=== PATIENT | male | born 1935 | race Caucasian/White ===

== ENCOUNTER 2016-06-19 22:00 | Emergency (ER) | payer MEDICARE, MEDICAID ==
--- NOTE | 2016-06-19 22:18 | Emergency Department Record ---
History of Present Illness - General Chief complaint: Lower Extremity Pain Stated complaint: LEG PAIN Time Seen by Provider: 06/19/16 22:12 Source: Family Mode of Arrival: AMBULATORY W WALKER Limitations: No limitations - History of Present Illness Initial comments: The patient is here due to R ankle and lower leg pain for about 2 months that seems to be worse for the last week. The patient denies any fall, trauma, or injury. According to the patient's son the issue has been very chronic in nature. The patient has a hx of chronic leg edema and will not wear his compression stockings. He also has chronic discoloration to the anterior lower leg but that is not new now. The son denies any fever, chills, or any recent illness. MD Complaint: Extremity pain Onset/Timin -: Month(s) Location: Right, Ankle Radiation: None Quality: Other Consistency: Getting worse Improves with: Nothing Worsens with: Nothing Associated Symptoms: Denies other symptoms - Related Data Home Medications Medication Instructions Recorded Confirmed Last Taken Allopurinol [Zyloprim] 300 mg PO DAILY 06/19/16 06/19/16 Unknown Amlodipine Besylate [Norvasc] 5 mg PO DAILY 06/19/16 06/19/16 Unknown Calcitriol 0.25 mcg PO WEEKLY 06/19/16 06/19/16 Unknown Clonidine HCl 0.3 mg PO DAILY 06/19/16 06/19/16 Unknown Furosemide [Lasix] 40 mg PO DAILY 06/19/16 06/19/16 Unknown Gabapentin [Neurontin] 100 mg PO BID 06/19/16 06/19/16 Unknown Glimepiride [Amaryl] 2 mg PO DAILY 06/19/16 06/19/16 Unknown Meclizine HCl [Antivert] 25 mg PO DAILY PRN 06/19/16 06/19/16 Unknown Metolazone [Zaroxolyn] 2.5 mg PO DAILY 06/19/16 06/19/16 Unknown Omeprazole [Prilosec] 20 mg PO DAILY 06/19/16 06/19/16 Unknown Ropinirole HCl [Ropinirole ER] 2 mg PO BID 06/19/16 06/19/16 Unknown Simvastatin [Zocor] 20 mg PO DAILY 06/19/16 06/19/16 Unknown Previous Rx's Medication Instructions Recorded Acetaminophen [Tylenol 325Mg] 650 mg PO Q6H #50 tablet 06/19/16 Triamcinolone Acetonide 1 apply TP BID #1 tube 06/19/16 Allergies Allergy/AdvReac Type Severity Reaction Status Date / Time NO KNOWN DRUG ALLERGY Allergy Uncoded 08/02/13 10:02 Travel Screening - Travel/Exposure Within Last 30 Days Have you traveled within the last 30 days?: No - Travel/Exposure Within Last Year Have you traveled outside the [place] in the last year?: No - Additonal Travel Details Have you been exposed to anyone with a communicable illness?: No - Travel Symptoms Symptom Screening: None Review of Systems Constitutional: Denies: Chills, Fever Eyes: Denies: Eye discharge ENT: Denies: Congestion Respiratory: Denies: Cough, Dyspnea Past Medical History - SOCIAL HISTORY Smoking Status: Never smoker Alcohol Use: Rare Drug Use: None - RESPIRATORY Hx Respiratory Disorders: No - CARDIOVASCULAR Hx Cardio Disorders: No - NEURO Hx Neuro Disorders: No - GI Hx GI Disorders: No - Hx Genitourinary Disorders: Yes Hx Dialysis: No Hx Renal Disease: Yes (CKD) - ENDOCRINE Hx Endocrine Disorders: Yes Hx Diabetes: Yes - MUSCULOSKELETAL Hx Musculoskeletal Disorders: No - PSYCH Hx Psych Problems: No - HEMATOLOGY/ONCOLOGY Hx Hematology/Oncology Disorders: No Family Medical History Any Significant Family History?: No Physical Exam - General General Appearance: Alert, Cooperative, No acute distress - Head Head exam: Atraumatic, Normocephalic, Normal inspection - Eye Eye exam: Normal appearance, PERRL - Neck Neck exam: Normal inspection, Full ROM. negative: Tenderness - Respiratory Respiratory exam: Normal lung sounds bilaterally. negative: Rales, Respiratory distress, Rhonchi - Cardiovascular Cardiovascular Exam: Regular rate, Normal rhythm, Systolic murmur - GI/Abdominal GI/Abdominal exam: Soft, Normal bowel sounds. negative: Tenderness - Extremities Extremities exam: Full ROM, Pedal edema (2+ bilaterally and chronic.), Tenderness (There is mild tenderness to the anterior lower leg distally near where the patient's chronic venous stasis discoloration is present.), Other ( The patient's son states the discolored area to the R lower leg anteriorly is stable. There are trace pulses to the R foot with no foot pain or numbness.). negative: Normal inspection, Calf tenderness, Normal capillary refill Course Vital Signs 06/19/16 06/19/16 22:04 22:11 Temperature 97.7 F 97.7 F Pulse Rate [ 100 H Pulse Ox Probe] Respiratory 20 Rate Blood Pressure 146/81 [Left Arm] Pulse Ox 98 - Reevaluation(s) Reevaluation #1: The patient is doing very well. He insists the pain is over the discolored skin area of the R anterior lower leg. I did discuss it with the son and he states the area is chronically discolored and it appears stable to him. I will place the patient on a steroid cream and tylenol and have him see his PCP next week. The patient is also to obtain mild compression stockings to decrease the edema to the lower leg. 06/19/16 23:29 Medical Decision Making - Data Complexity MDM Data: Labs Ordered and/or Reviewed, X-Ray Ordered and/or Reviewed - Lab Data Result diagrams: 06/19/16 22:35 06/19/16 22:35 - Radiology Data Radiology results: Report reviewed (R lower leg: No acute changes.) Disposition Disposition: Discharge Clinical Impression: Leg pain, anterior Qualifiers: Laterality: right Qualified Code(s): M79.604 - Pain in right leg Disposition: Home, Self-Care Condition: (1) Good Instructions: Arthralgia (ED) Additional Instructions: Please take the Tylenol and Triamcinalone as directed and please use mild compression stockings during the day. Please see your PCP next week for recheck. Return to the ER if worse. Prescriptions: Triamcinolone Acetonide 1 apply TP BID #1 tube Acetaminophen [Tylenol 325Mg] 650 mg PO Q6H #50 tablet Forms: Patient Portal Access Time of Disposition: 23:28
[2016-06-19 22:50] LABS: BASO % 0.5 % (0-6); EOS % 3.2 % (0-6); GRAN % 62.9 % (47-80); HEMATOCRIT 42.1 % (42.0-52.0); HEMOGLOBIN 13.2 gm/dl (14.0-18.0); LYMPH % 27.8 % (16-45); MEAN CELL VOLUME 105.8 fl (81-97); MEAN CORPUSCULAR HGB CONC 31.4 g/dl (32-36); MEAN PLATELET VOLUME 10.3 fl (7.4-10.4); MONO % 5.6 % (0-9); PLATELET COUNT 172 K/uL (130-400); RED BLOOD COUNT 3.98 M/uL (4.40-5.70); RED CELL DISTRIBUTION WIDTH 15.7 % (11.5-14.5); WHITE BLOOD COUNT W/O DIFF 4.4 K/uL (4.2-12.2)
[2016-06-19 22:51] LABS: MEAN CORPUSCULAR HEMOGLOBIN 33.1 pg (27-33)
[2016-06-19 23:03] LABS: ANION GAP 18.4 (7-16); CARBON DIOXIDE 27.6 mmol/L (22-30); CREATININE 3.5 mg/dL (0.66-1.25)
[2016-06-19] MEDS: ACETAMINOPHEN 325 MG TAB PO ONE (23:45)
--- NOTE | 2016-06-25 14:59 | RADIOLOGY REPORT ---
EXAM: RIGHT LOWER LEG HISTORY: LEG PAIN. TECHNIQUE: Two views of the right lower leg were obtained. Comparison: None. Encounter: Initial. FINDINGS: Negative for an acute fracture or dislocation. Vascular calcifications. Soft tissue swelling may reflect edema or cellulitis. There is no soft tissue gas. IMPRESSION: NO ACUTE OSSEOUS ABNORMALITY. DIFFUSE SOFT TISSUE SWELLING. JOB NUMBER: [id number] MTDD
== END 2016-06-19 23:58 | disposition home or self-care (01) ==
LOC: ER 22:00
DX: M79.604 Pain in right leg (principal); R60.0 Localized edema
CPT/HCPCS: 80048; 85025; 99283; 99284

== ENCOUNTER 2016-07-01 14:54 | Emergency (ER) | payer MEDICARE, MEDICAID ==
--- NOTE | 2016-07-01 15:28 | Emergency Department Record ---
History of Present Illness - General Chief Complaint: Altered Mental Status Stated Complaint: ALTERED LEVEL OF CONSCIOUSNESS Time Seen by Provider: 07/01/16 15:17 Source: Patient Mode of Arrival: Ambulatory Limitations: No limitations - History of Present Illness Initial Comments: 80 yo male presents by EMS from [facility]. Per EMS staff reported a concern about his breathing, possible alcohol use, and sadness over discussing the of his . The patient patient states he is sad. He states his of 25 years April 10. He was thinking about her today and became tearful. He is not in pain. He denies shortness of breath. He states he has been eating and drinking normally. Onset/Timin -: Hour(s) Severity: Mild Context: Unknown Associated Symptoms: Denies other symptoms - [place] Coma Scale Eye Response: (4) Open spontaneously Motor Response: (6) Obeys commands Verbal Response: (5) Oriented Brenda Total: 15 - Related Data Home Medications Medication Instructions Recorded Confirmed Last Taken Allopurinol [Zyloprim] 300 mg PO DAILY 06/19/16 07/01/16 07/01/16 Amlodipine Besylate [Norvasc] 5 mg PO DAILY 06/19/16 07/01/16 07/01/16 Calcitriol 0.25 mcg PO WEEKLY 06/19/16 07/01/16 07/01/16 Clonidine HCl 0.3 mg PO DAILY 06/19/16 07/01/16 07/01/16 Furosemide [Lasix] 40 mg PO DAILY 06/19/16 07/01/16 07/01/16 Gabapentin [Neurontin] 100 mg PO BID 06/19/16 07/01/16 07/01/16 Glimepiride [Amaryl] 2 mg PO DAILY 06/19/16 07/01/16 07/01/16 Meclizine HCl [Antivert] 25 mg PO DAILY PRN 06/19/16 07/01/16 07/01/16 Metolazone [Zaroxolyn] 2.5 mg PO DAILY 06/19/16 07/01/16 07/01/16 Omeprazole [Prilosec] 20 mg PO DAILY 06/19/16 07/01/16 07/01/16 Ropinirole HCl [Ropinirole ER] 2 mg PO BID 06/19/16 07/01/16 07/01/16 Simvastatin [Zocor] 20 mg PO DAILY 06/19/16 07/01/16 07/01/16 Previous Rx's Medication Instructions Recorded Acetaminophen [Tylenol 325Mg] 650 mg PO Q6H #50 tablet 06/19/16 Triamcinolone Acetonide 1 apply TP BID #1 tube 06/19/16 Allergies Allergy/AdvReac Type Severity Reaction Status Date / Time NO KNOWN DRUG ALLERGY Allergy Uncoded 08/02/13 10:02 Travel Screening - Travel/Exposure Within Last 30 Days Have you traveled within the last 30 days?: No - Travel/Exposure Within Last Year Have you traveled outside the [place] in the last year?: No - Additonal Travel Details Have you been exposed to anyone with a communicable illness?: No Review of Systems Constitutional: Denies: Chills, Fever, Malaise, Weakness Eyes: Denies: Eye discharge, Eye pain, Photophobia ENT: Denies: Congestion, Throat pain Respiratory: Denies: Cough, Dyspnea, Hemoptysis, Stridor, Wheezes Cardiovascular: Denies: Chest pain, Palpitations, Syncope Endocrine: Denies: Fatigue Gastrointestinal: Denies: Abdominal pain, Constipation, Diarrhea, Nausea, Vomiting Genitourinary: Denies: Hematuria, Urgency Musculoskeletal: Denies: Arthralgia, Back pain, Joint swelling, Myalgia Skin: Denies: Bruising, Change in color Psychiatric: Reports: Depression. Denies: Anxiety Hematological/Lymphatic: Denies: Blood Clots, Easy bleeding, Easy bruising, Swollen glands Past Medical History - SOCIAL HISTORY Smoking Status: Never smoker Alcohol Use: Rare Alcohol Use Comment: 2-3 shots whiskey daily. Drug Use: None - RESPIRATORY Hx Respiratory Disorders: No - CARDIOVASCULAR Hx Cardio Disorders: No - NEURO Hx Neuro Disorders: No - GI Hx GI Disorders: No - Hx Genitourinary Disorders: Yes Hx Dialysis: No Hx Renal Disease: Yes (CKD) - ENDOCRINE Hx Endocrine Disorders: Yes Hx Diabetes: Yes - MUSCULOSKELETAL Hx Musculoskeletal Disorders: No - PSYCH Hx Psych Problems: No - HEMATOLOGY/ONCOLOGY Hx Hematology/Oncology Disorders: No Family Medical History Any Significant Family History?: No Physical Exam - General General Appearance: Alert, Oriented x3, Cooperative, No acute distress Limitations: No limitations, Other (Hard of Hearing best in left ear, no confusion, aware of surroundings, PCP) - Head Head exam: Atraumatic, Normocephalic, Normal inspection - Eye Eye exam: Normal appearance, PERRL. negative: Conjunctival injection, Periorbital swelling - ENT ENT exam: Normal exam, Mucous membranes moist Ear exam: Normal external inspection Nasal Exam: Normal inspection Mouth exam: Normal external inspection Teeth exam: Normal inspection Throat exam: Normal inspection - Neck Neck exam: Normal inspection, Full ROM. negative: Tenderness - Respiratory Respiratory exam: Normal lung sounds bilaterally. negative: Accessory muscle use, Respiratory distress, Rhonchi, Stridor, Wheezes - Cardiovascular Cardiovascular Exam: Regular rate, Normal rhythm, Normal heart sounds Peripheral Pulses: 2+: Radial (R), Radial (L) - GI/Abdominal GI/Abdominal exam: Soft. negative: Distended, Tenderness - Rectal Rectal exam: Deferred - exam: Deferred - Extremities Extremities exam: Normal inspection, Full ROM, Normal capillary refill. negative: Pedal edema, Tenderness - Back Back exam: Reports: Normal inspection, Full ROM. Denies: Muscle spasm, Rash noted, Tenderness - Neurological Neurological exam: Alert, CN II-XII intact, Oriented X3. negative: Motor sensory deficit - Psychiatric Psychiatric exam: Normal affect, Normal mood. negative: Agitated, Anxious - Skin Skin exam: Dry, Intact, Normal color, Warm Course Vital Signs 07/01/16 14:58 Temperature 97.4 F L Pulse Rate 78 Respiratory 24 Rate Blood Pressure 127/71 Pulse Ox 97 - Reevaluation(s) Reevaluation #1: Vitals are in the normal range He denies pain or shortness of breath He states he is sad remembering his 's . 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 He will follow up with the continued grief over his . 07/01/16 16:19 Reevaluation #3: The patient's daughter in law in the ED to pick up attendant the patient I informed her of the labs, Dr Nye's plan to follow up the renal function and the depression/grieving 07/01/16 17:32 Medical Decision Making - Lab Data Result diagrams: 07/01/16 15:53 07/01/16 15:53 Disposition Disposition: Discharge Clinical Impression: Grief Chronic renal failure Qualifiers: Chronic kidney disease stage: unspecified stage Qualified Code(s): N18.9 - Chronic kidney disease, unspecified Disposition: Home, Self-Care Condition: (1) Good Instructions: Chronic Kidney Disease (ED), Grief and Loss (ED) Additional Instructions: Dr Nye will follow up with your this week regarding your kidney function He will also follow up with you dealing with the loss of your and your grief Return at any time if you have any concerns. Forms: Patient Portal Access Time of Disposition: 16:21
[2016-07-01 16:06] LABS: BASO % 0.4 % (0-6); EOS % 1.8 % (0-6); GRAN % 72.1 % (47-80); HEMATOCRIT 41.2 % (42.0-52.0); HEMOGLOBIN 13.4 gm/dl (14.0-18.0); MEAN CELL VOLUME 101.5 fl (81-97); MEAN CORPUSCULAR HGB CONC 32.5 g/dl (32-36); MEAN PLATELET VOLUME 10.2 fl (7.4-10.4); MONO % 5.7 % (0-9); PLATELET COUNT 145 K/uL (130-400); RED BLOOD COUNT 4.06 M/uL (4.40-5.70); RED CELL DISTRIBUTION WIDTH 15.7 % (11.5-14.5); WHITE BLOOD COUNT W/O DIFF 5.7 K/uL (4.2-12.2)
[2016-07-01 16:12] LABS: ANION GAP 14.6 (7-16); CARBON DIOXIDE 28.4 mmol/L (22-30); CREATININE 3.9 mg/dL (0.66-1.25)
== END 2016-07-01 17:31 | disposition home or self-care (01) ==
LOC: ER 14:54
DX: R41.82 Altered mental status, unspecified (principal); E11.22 Type 2 diabetes mellitus with diabetic chronic kidney disease; N18.9 Chronic kidney disease, unspecified; Z79.84 Long term (current) use of oral hypoglycemic drugs; F43.21 Adjustment disorder with depressed mood
CPT/HCPCS: 80048; 80320; 85025; 99283

== ENCOUNTER 2016-07-20 11:31 | Emergency (ER) | payer MEDICARE, MEDICAID ==
--- NOTE | 2016-07-20 11:46 | Emergency Department Record ---
History of Present Illness - General Chief Complaint: Difficulty Breathing Stated Complaint: SHORTNESS OF BREATH Time Seen by Provider: 07/20/16 11:40 Source: Patient Mode of Arrival: EMS Limitations: No limitations - History of Present Illness Initial Comments: 80 yo male presents to ED via EMS from [facility] for evaluation of "delayed responses and shortness of breath". Patient denies any difficulty in breathing , cough, fevers, chills, or recent illness. Patient reports that he feels fine , is aware of where he is, the year, and is reports that he's "angry that they brought me here". Complaint: Shortness of breath Onset/Timin -: Hour(s) Associated Symptoms: Denies other symptoms - Related Data Home Medications Medication Instructions Recorded Confirmed Last Taken Allopurinol [Zyloprim] 300 mg PO DAILY 06/19/16 07/20/16 07/20/16 Amlodipine Besylate [Norvasc] 5 mg PO DAILY 06/19/16 07/20/16 07/20/16 Calcitriol 0.25 mcg PO WEEKLY 06/19/16 07/20/16 07/20/16 Clonidine HCl 0.3 mg PO DAILY 06/19/16 07/20/16 07/20/16 Furosemide [Lasix] 40 mg PO DAILY 06/19/16 07/20/16 07/20/16 Gabapentin [Neurontin] 100 mg PO BID 06/19/16 07/20/16 07/20/16 Glimepiride [Amaryl] 2 mg PO DAILY 06/19/16 07/20/16 07/20/16 Meclizine HCl [Antivert] 25 mg PO DAILY PRN 06/19/16 07/20/16 07/20/16 Metolazone [Zaroxolyn] 2.5 mg PO DAILY 06/19/16 07/20/16 07/20/16 Omeprazole [Prilosec] 20 mg PO DAILY 06/19/16 07/20/16 07/20/16 Ropinirole HCl [Ropinirole ER] 2 mg PO BID 06/19/16 07/20/16 07/20/16 Simvastatin [Zocor] 20 mg PO DAILY 06/19/16 07/20/16 07/20/16 Previous Rx's Medication Instructions Recorded Acetaminophen [Tylenol 325Mg] 650 mg PO Q6H #50 tablet 06/19/16 Triamcinolone Acetonide 1 apply TP BID #1 tube 06/19/16 Allergies Allergy/AdvReac Type Severity Reaction Status Date / Time NO KNOWN DRUG ALLERGY Allergy PT UNSURE Uncoded 07/20/16 11:35 OF REACTION Review of Systems Constitutional: Denies: Chills, Fever, Malaise, Night sweats Eyes: Denies: Eye discharge, Eye pain ENT: Denies: Congestion, Ear pain, Epistaxis Respiratory: Denies: Cough, Dyspnea Cardiovascular: Denies: Chest pain, Dyspnea on exertion Endocrine: Denies: Fatigue, Heat or cold intolerance Gastrointestinal: Denies: Abdominal pain, Nausea, Vomiting Genitourinary: Denies: Incontinence, Retention Musculoskeletal: Denies: Arthralgia, Back pain, Gout, Joint swelling Skin: Denies: Bruising, Change in color Neurological: Denies: Abnormal gait, Confusion, Headache, Seizure Psychiatric: Denies: Anxiety Hematological/Lymphatic: Denies: Anemia, Blood Clots Past Medical History - SOCIAL HISTORY Smoking Status: Never smoker Alcohol Use Comment: 2-3 shots whiskey daily. Drug Use: None - RESPIRATORY Hx Respiratory Disorders: No - CARDIOVASCULAR Hx Cardio Disorders: No - NEURO Hx Neuro Disorders: No - GI Hx GI Disorders: No - Hx Genitourinary Disorders: Yes Hx Dialysis: No Hx Renal Disease: Yes (CKD) - ENDOCRINE Hx Endocrine Disorders: Yes Hx Diabetes: Yes - MUSCULOSKELETAL Hx Musculoskeletal Disorders: No - PSYCH Hx Psych Problems: No - HEMATOLOGY/ONCOLOGY Hx Hematology/Oncology Disorders: No Physical Exam - General General Appearance: Alert, Oriented x3, Cooperative, Other (joking with me on examination, well appearing, AO x 3) Limitations: No limitations - Head Head exam: Atraumatic, Normocephalic, Normal inspection Head exam detail: negative: Abrasion, Contusion, Coreas's sign, General tenderness, Hematoma, Laceration - Eye Eye exam: Normal appearance. negative: Conjunctival injection, Periorbital swelling, Periorbital tenderness, Scleral icterus - ENT Ear exam: negative: Auricular hematoma, Auricular trauma Nasal Exam: negative: Active bleeding, Discharge, Dried blood, Foreign body Mouth exam: negative: Drooling, Laceration, Muffled voice, Tongue elevation - Neck Neck exam: Normal inspection. negative: Meningismus, Tenderness - Respiratory Respiratory exam: Normal lung sounds bilaterally. negative: Rales, Respiratory distress, Rhonchi, Stridor - Cardiovascular Cardiovascular Exam: Regular rate, Normal rhythm, Normal heart sounds - GI/Abdominal GI/Abdominal exam: Soft. negative: Rebound, Rigid, Tenderness - exam: Deferred - Extremities Extremities exam: Pedal edema (chronic per patient (2+)). negative: Calf tenderness, Tenderness - Back Back exam: Denies: CVA tenderness (R), CVA tenderness (L) - Neurological Neurological exam: Alert, Oriented X3. negative: Motor sensory deficit - Psychiatric Psychiatric exam: Normal affect, Normal mood - Skin Skin exam: Normal color. negative: Abrasion Type of lesion: negative: abrasion Course - Reevaluation(s) Reevaluation #1: 07/20/16 12:38 Labs reviewed, BUN 56 (baseline 60), Creatinine 3.4 (baseline 3.7). Labs are otherwise grossly unremarkable for an acute process. Reevaluation #2: 07/20/16 12:52 CXR: No acute process. Patient was updated on all results, reports "I could of told you everything looked good". Patient appears stable for discharge at this time. Medical Decision Making - Lab Data Result diagrams: 07/20/16 12:05 07/20/16 12:05 Disposition Disposition: Discharge Clinical Impression: Dyspnea Qualifiers: Dyspnea type: unspecified Qualified Code(s): R06.00 - Dyspnea, unspecified Disposition: Home, Self-Care Condition: (2) Stable Additional Instructions: Return to ED if your symptoms worsen or if you have any concerns. Follow-up with your family doctor in 3-5 days as directed. Forms: Patient Portal Access Time of Disposition: 12:54
[2016-07-20 12:20] LABS: BASO % 0.6 % (0-6); EOS % 1.9 % (0-6); GRAN % 67.3 % (47-80); HEMATOCRIT 42.7 % (42.0-52.0); HEMOGLOBIN 13.4 gm/dl (14.0-18.0); LYMPH % 24.4 % (16-45); MEAN CELL VOLUME 102.2 fl (81-97); MEAN CORPUSCULAR HGB CONC 31.4 g/dl (32-36); MEAN PLATELET VOLUME 10.1 fl (7.4-10.4); MONO % 5.8 % (0-9); PLATELET COUNT 161 K/uL (130-400); RED BLOOD COUNT 4.18 M/uL (4.40-5.70); RED CELL DISTRIBUTION WIDTH 15.7 % (11.5-14.5); WHITE BLOOD COUNT W/O DIFF 4.6 K/uL (4.2-12.2)
[2016-07-20 12:31] LABS: ALB/GLOB RATIO 1.5 (1.1-1.8); ALBUMIN 4.8 gm/dL (3.5-5.0); BILIRUBIN,TOTAL 0.64 mg/dL (0.2-1.3); CREATININE 3.4 mg/dL (0.66-1.25); TOTAL PROTEIN 7.9 gm/dL (6.3-8.2)
== END 2016-07-20 13:32 | disposition home or self-care (01) ==
LOC: ER 11:31
DX: R06.00 Dyspnea, unspecified (principal); E11.22 Type 2 diabetes mellitus with diabetic chronic kidney disease; N18.9 Chronic kidney disease, unspecified
CPT/HCPCS: 71020; 80053; 85025; 99283

== ENCOUNTER 2016-07-22 23:18 | Emergency (ER) | payer MEDICARE, MEDICAID ==
[2016-07-23 01:42] LABS: BASO % 0.3 % (0-6); EOS % 1.8 % (0-6); HEMATOCRIT 44.9 % (42.0-52.0); HEMOGLOBIN 13.9 gm/dl (14.0-18.0); LYMPH % 23.4 % (16-45); MEAN CELL VOLUME 100.9 fl (81-97); MEAN CORPUSCULAR HEMOGLOBIN 31.2 pg (27-33); MEAN PLATELET VOLUME 10.1 fl (7.4-10.4); MONO % 8.5 % (0-9); PLATELET COUNT 169 K/uL (130-400); RED BLOOD COUNT 4.45 M/uL (4.40-5.70); RED CELL DISTRIBUTION WIDTH 15.7 % (11.5-14.5); WHITE BLOOD COUNT W/O DIFF 6.7 K/uL (4.2-12.2)
[2016-07-23 01:53] LABS: ANION GAP 18.4 (7-16); CARBON DIOXIDE 30.6 mmol/L (22-30); CREATININE 3.8 mg/dL (0.66-1.25)
--- NOTE | 2016-07-23 02:33 | Emergency Department Record ---
History of Present Illness - General Chief Complaint: Fall Injury Stated Complaint: FALL Time Seen by Provider: 07/22/16 23:54 Source: Patient, Family Mode of Arrival: EMS Limitations: No limitations - History of Present Illness Initial Comments: pt fell hitting his head and knee and was sent over from [facility]. no loc. MD Complaint: Fall Onset/Timin -: Minutes(s) Fall From: Standing When Fall Occurred: 1 hour [employer] RE[employer] Fall Witnessed: Yes, by living facility staff Place Fall Occurred: custodial/SNF Loss of Consciousness: None Prolonged Down Time?: No Symptoms Prior to Fall: None Location: Head, Other Location - Extremities: Right: Knee Severity: Mild Quality: Aching Context: Tripped/slipped Associated Symptoms: Denies - [place] Coma Scale Eye Response: (4) Open spontaneously Motor Response: (6) Obeys commands Verbal Response: (4) Confused conversation Brenda Total: 14 - Related Data Home Medications Medication Instructions Recorded Confirmed Last Taken Amlodipine Besylate [Norvasc] 5 mg PO DAILY 06/19/16 07/23/16 07/22/16 Calcitriol 0.25 mcg PO WEEKLY 06/19/16 07/23/16 07/22/16 Clonidine HCl 0.3 mg PO DAILY 06/19/16 07/23/16 07/22/16 Furosemide [Lasix] 40 mg PO DAILY 06/19/16 07/23/16 07/22/16 Glimepiride [Amaryl] 2 mg PO DAILY 06/19/16 07/23/16 07/22/16 Meclizine HCl [Antivert] 25 mg PO DAILY PRN 06/19/16 07/23/16 07/20/16 Metolazone [Zaroxolyn] 2.5 mg PO DAILY 06/19/16 07/23/16 07/22/16 Omeprazole [Prilosec] 20 mg PO DAILY 06/19/16 07/23/16 07/22/16 Ropinirole HCl [Ropinirole ER] 2 mg PO BID 06/19/16 07/23/16 07/22/16 Simvastatin [Zocor] 20 mg PO DAILY 06/19/16 07/23/16 07/22/16 Previous Rx's Medication Instructions Recorded Acetaminophen [Tylenol 325Mg] 650 mg PO Q6H #50 tablet 03/15/17 Allergies Allergy/AdvReac Type Severity Reaction Status Date / Time NO KNOWN DRUG ALLERGY Allergy PT UNSURE Uncoded 07/20/16 11:35 OF REACTION Travel Screening - Travel/Exposure Within Last 30 Days Have you traveled within the last 30 days?: No - Travel/Exposure Within Last Year Have you traveled outside the [place] in the last year?: No - Additonal Travel Details Have you been exposed to anyone with a communicable illness?: No - Travel Symptoms Symptom Screening: None Review of Systems Reviewed: No additional complaints except as noted below Constitutional: Reports: As per HPI. Denies: Chills, Fever, Malaise, Night sweats, Weakness, Weight change Eyes: Reports: As per HPI. Denies: Eye discharge, Eye pain, Photophobia, Vision change ENT: Reports: As per HPI. Denies: Congestion, Dental pain, Ear pain, Epistaxis , Hearing loss, Throat pain Respiratory: Reports: As per HPI. Denies: Cough, Dyspnea, Hemoptysis, Stridor, Wheezes Cardiovascular: Reports: As per HPI. Denies: Arrhythmia, Chest pain, Dyspnea on exertion, Edema, Murmurs, Orthopnea, Palpitations, Paroxysmal nocturnal dyspnea, Rheumatic Fever, Syncope Endocrine: Reports: As per HPI. Denies: Fatigue, Heat or cold intolerance, Polydipsia, Polyuria Gastrointestinal: Reports: As per HPI. Denies: Abdominal pain, Constipation, Diarrhea, Hematemesis, Hematochezia, Melena, Nausea, Vomiting Genitourinary: Reports: As per HPI. Denies: Dysuria, Frequency, Hematuria, Incontinence, Retention, Testicular pain, Testicular mass, Urgency Musculoskeletal: Reports: As per HPI. Denies: Arthralgia, Back pain, Gout, Joint swelling, Myalgia, Neck pain Skin: Reports: As per HPI. Denies: Bruising, Change in color, Change in hair/ nails, Lesions, Pruritus, Rash Neurological: Reports: As per HPI. Denies: Abnormal gait, Confusion, Headache, Numbness, Paresthesias, Seizure, Tingling, Tremors, Vertigo, Weakness Psychiatric: Reports: As per HPI. Denies: Anxiety, Auditory hallucinations, Depression, Homicidal thoughts, Suicidal thoughts, Visual hallucinations Hematological/Lymphatic: Reports: As per HPI. Denies: Anemia, Blood Clots, Easy bleeding, Easy bruising, Swollen glands Past Medical History - SOCIAL HISTORY Smoking Status: Never smoker Alcohol Use: None Drug Use: None - RESPIRATORY Hx Respiratory Disorders: No - CARDIOVASCULAR Hx Cardio Disorders: No - NEURO Hx Neuro Disorders: No - GI Hx GI Disorders: No - Hx Genitourinary Disorders: Yes Hx Dialysis: No Hx Renal Disease: Yes (CKD) - ENDOCRINE Hx Endocrine Disorders: Yes Hx Diabetes: Yes (NIDDM) - MUSCULOSKELETAL Hx Musculoskeletal Disorders: No - PSYCH Hx Psych Problems: No - HEMATOLOGY/ONCOLOGY Hx Hematology/Oncology Disorders: No Family Medical History Any Significant Family History?: No Physical Exam - General General Appearance: Alert, Oriented x3, Cooperative, Mild distress - Head Head exam: Normal inspection - Eye Eye exam: Normal appearance, PERRL, EOMI Pupils: Normal accommodation - ENT ENT exam: Normal exam, Mucous membranes moist, Normal external ear exam, Normal orophraynx Ear exam: Normal external inspection. negative: External canal tenderness Nasal Exam: Normal inspection. negative: Discharge, Sinus tenderness Mouth exam: Normal external inspection, Tongue normal Teeth exam: Normal inspection. negative: Dental caries Throat exam: Normal inspection. negative: Tonsillar erythema, Tonsillar exudate - Neck Neck exam: Normal inspection, Full ROM. negative: Tenderness - Respiratory Respiratory exam: Normal lung sounds bilaterally. negative: Respiratory distress - Cardiovascular Cardiovascular Exam: Regular rate, Normal rhythm, Normal heart sounds - GI/Abdominal GI/Abdominal exam: Soft, Normal bowel sounds. negative: Tenderness - Rectal Rectal exam: Deferred - exam: Deferred - Extremities Extremities exam: Normal inspection, Full ROM, Normal capillary refill, Other ( abrasion r knee). negative: Tenderness - Back Back exam: Reports: Normal inspection, Full ROM. Denies: Muscle spasm, Rash noted, Tenderness - Neurological Neurological exam: Alert, CN II-XII intact, Normal gait, Oriented X3 - Psychiatric Psychiatric exam: Normal affect, Normal mood - Skin Skin exam: Dry, Intact, Normal color, Warm Course Vital Signs 07/22/16 07/23/16 23:22 01:18 Temperature 98.4 F Pulse Rate 90 Pulse Rate [ 88 Pulse Ox Probe] Respiratory 24 16 Rate Blood Pressure 108/79 Blood Pressure 105/72 [Left Arm] Pulse Ox 96 95 - Reevaluation(s) Reevaluation #1: 07/23/16 02:[address] shows old subdural, shunt and possible epidural. pts renal failure has worsened. being transferred. Reevaluation #2: 07/23/16 02:53 d/w dr mar Medical Decision Making - Lab Data Result diagrams: 07/23/16 01:37 07/23/16 01:37 Lab Results 07/23/16 07/23/16 Range/Units 01:37 01:37 WBC 6.7 (4.2-12.2) K/uL RBC 4.45 (4.40-5.70) M/uL Hgb 13.9 L (14.0-18.0) gm/dl Hct 44.9 (42.0-52.0) % MCV 100.9 H (81-97) fl MCH 31.2 (27-33) pg MCHC 31.0 L (32-36) g/dl RDW 15.7 H (11.5-14.5) % Plt Count 169 (130-400) K/uL MPV 10.1 (7.4-10.4) fl Gran % 66.0 (47-80) % Lymphocytes % 23.4 (16-45) % Monocytes % 8.5 (0-9) % Eosinophils % 1.8 (0-6) % Basophils % 0.3 (0-6) % Sodium 140 (136-145) mmol/L Potassium 3.3 L (3.5-5.1) mmol/L Chloride 91 L (98-107) mmol/L Carbon Dioxide 30.6 H (22-30) mmol/L Anion Gap 18.4 H (7-16) BUN 64 H (9-20) mg/dL Creatinine 3.8 H (0.66-1.25) mg/dL Estimated GFR 16 ml/min Random Glucose 67 L (70-110) mg/dL Calcium 9.9 (8.5-10.1) mg/dL Disposition Disposition: Transfer Clinical Impression: Renal failure Head injury due to trauma Qualifiers: Encounter type: initial encounter Qualified Code(s): S09.90XA - Unspecified injury of head, initial encounter Disposition: Acute Care Hospital Transfer Transfer To: [facility] Reason For Transfer: 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
[2016-07-23 02:50] LABS: URINE APPEARANCE CLEAR; URINE BILIRUBIN NEGATIVE (NEGATIVE); URINE BLOOD SMALL (NEGATIVE); URINE COLOR YELLOW; URINE EPITHELIAL CELLS 0 - 2 (FEW); URINE GLUCOSE (UA) NEGATIVE (NEGATIVE); URINE KETONE NEGATIVE (NEGATIVE); URINE LEUKOCYTE ESTERASE NEGATIVE (NEGATIVE); URINE NITRITE NEGATIVE (NEGATIVE); URINE UROBILINOGEN 0.2 E.U./dL (0.20 - 1.00); URINE WBC 0 - 2 (0-2/hpf)
[2016-07-23 02:51] LABS: URINE BACTERIA NONE SEEN
== END 2016-07-23 03:16 | disposition short-term general hospital (02) ==
LOC: ER 23:18
DX: S09.90XA Unspecified injury of head, initial encounter (principal); E11.22 Type 2 diabetes mellitus with diabetic chronic kidney disease; N18.9 Chronic kidney disease, unspecified; R41.0 Disorientation, unspecified; M25.561 Pain in right knee; W01.0XXA Fall on same level from slipping, tripping and stumbling without subsequent striking against object, initial encounter; Y92.121 Bathroom in nursing home as the place of occurrence of the external cause; Z86.73 Personal history of transient ischemic attack (TIA), and cerebral infarction without residual deficits
CPT/HCPCS: 70450; 72125; 80048; 81001; 85025; 99285

== ENCOUNTER 2017-04-11 09:08 | Emergency (ER) | payer MEDICARE, MEDICAID ==
[2017-04-11] MEDS ORDERED: ONDANSETRON HCL IV 4 MG/2 ML VIAL IV ONE (09:31)
--- NOTE | 2017-04-11 09:36 | Emergency Department Record ---
History of Present Illness - General Chief complaint: Nausea, Vomiting, Diarrhea Stated complaint: N/V/D Time Seen by Provider: 04/11/17 09:23 Source: Patient, EMS Mode of Arrival: EMS Limitations: No limitations - History of Present Illness Initial comments: The patient is here from [facility] due to a 2 hour hx of nausea, vomiting, and diarrhea. He denies any AP, back pain, or blood in the stool or vomit. The patient also denies any other medical issues presently. MD complaint: Diarrhea, Nausea, Vomiting Onset/Timin -: Hour(s) Description of Vomiting: Bilious Description of Diarrhea: Water Associated Abdominal Pain: No Improves with: None Worsens with: None Associated Symptoms: Nausea/vomiting - Related Data Previous Rx's Medication Instructions Recorded Acetaminophen [Tylenol 325Mg] 650 mg PO Q6H #50 tablet 06/19/16 Ondansetron [Zofran Odt] 4 mg SL .Q4-6H PRN #12 tab.rapdis 04/11/17 Allergies Allergy/AdvReac Type Severity Reaction Status Date / Time NO KNOWN DRUG ALLERGY Allergy PT UNSURE Uncoded 07/20/16 11:35 OF REACTION Travel Screening - Travel/Exposure Within Last 30 Days Have you traveled within the last 30 days?: No Review of Systems Constitutional: Denies: Chills, Fever Eyes: Denies: Eye discharge ENT: Denies: Congestion Respiratory: Denies: Cough, Dyspnea Past Medical History - SOCIAL HISTORY Smoking Status: Never smoker Alcohol Use: None Drug Use: None - RESPIRATORY Hx Respiratory Disorders: No - CARDIOVASCULAR Hx Cardio Disorders: No - NEURO Hx Neuro Disorders: Yes Hx CVA: Yes (X2) Comment:: Shunt place - GI Hx GI Disorders: No - Hx Genitourinary Disorders: Yes Hx Dialysis: No Hx Renal Disease: Yes (CKD) - ENDOCRINE Hx Endocrine Disorders: Yes Hx Diabetes: Yes (NIDDM) - MUSCULOSKELETAL Hx Musculoskeletal Disorders: No - PSYCH Hx Psych Problems: No - HEMATOLOGY/ONCOLOGY Hx Hematology/Oncology Disorders: No Family Medical History Any Significant Family History?: No Physical Exam - General General Appearance: Alert, No acute distress - Head Head exam: Atraumatic, Normocephalic, Normal inspection - Eye Eye exam: Normal appearance, PERRL - ENT Throat exam: Normal inspection. negative: Tonsillar erythema, Tonsillar exudate - Neck Neck exam: Normal inspection, Full ROM. negative: Tenderness - Respiratory Respiratory exam: Normal lung sounds bilaterally. negative: Respiratory distress - Cardiovascular Cardiovascular Exam: Regular rate, Normal rhythm, Normal heart sounds - GI/Abdominal GI/Abdominal exam: Soft, Normal bowel sounds. negative: Rebound, Rigid, Tenderness - Extremities Extremities exam: Normal inspection, Full ROM, Normal capillary refill. negative: Tenderness Course Vital Signs 04/11/17 09:15 Pulse Rate 73 Respiratory 22 Rate Blood Pressure 136/99 Pulse Ox 96 - Reevaluation(s) Reevaluation #1: The patient is doing much better at this time. He feels "much better" and denies any pain, nausea, vomiting, or any further diarrhea. 04/11/17 10:46 Reevaluation #2: The patient is resting comfortably and feels much better. He denies any pain or discomfort. 04/11/17 12:50 Medical Decision Making - Lab Data Result diagrams: 04/11/17 09:22 04/11/17 09:22 Disposition Disposition: Discharge Clinical Impression: Vomiting and diarrhea Disposition: Home, Self-Care Condition: (2) Stable Instructions: Acute Nausea and Vomiting (ED) Additional Instructions: Continue your regular medicines and use Zofran if needed. Please see your doctor next week for recheck. Return to the ER for any worsening symptoms. Prescriptions: Ondansetron [Zofran Odt] 4 mg SL .Q4-6H PRN #12 tab.rapdis PRN Reason: Nausea Forms: Patient Portal Access Time of Disposition: 14:12 Quality - Quality Measures Quality Measures: N/A - Blood Pressure Screening View Details: Yes Does Patient Have Any of the Following: No Blood Pressure Classification: Hypertensive Reading Systolic Measurement: 136 Diastolic Measurement: 97 Screening for High Blood Pressure: < Pre-Hypertensive BP, F/U Documented > [ [id number]] Pre-Hypertensive Follow-up Interventions: Referral to alternative/primary care provider.
[2017-04-11] MEDS ORDERED: 0.9 % SODIUM CHLORIDE 1,000 ML BAG IV ONE (09:49)
[2017-04-11 09:54] LABS: BASO % 0.2 % (0-6); EOS % 3.2 % (0-6); GRAN % 70.4 % (47-80); HEMATOCRIT 41.2 % (42.0-52.0); HEMOGLOBIN 13.5 gm/dl (14.0-18.0); LYMPH % 19.5 % (16-45); MEAN CELL VOLUME 93.2 fl (81-97); MEAN CORPUSCULAR HEMOGLOBIN 30.5 pg (27-33); MEAN CORPUSCULAR HGB CONC 32.8 g/dl (32-36); MEAN PLATELET VOLUME 10.8 fl (7.4-10.4); MONO % 6.7 % (0-9); PLATELET COUNT 106 K/uL (130-400); RED BLOOD COUNT 4.42 M/uL (4.40-5.70); RED CELL DISTRIBUTION WIDTH 14.9 % (11.5-14.5); WHITE BLOOD COUNT W/O DIFF 4.1 K/uL (4.2-12.2)
[2017-04-11 10:58] LABS: URINE APPEARANCE CLEAR; URINE BILIRUBIN NEGATIVE (NEGATIVE); URINE BLOOD NEGATIVE (NEGATIVE); URINE COLOR YELLOW; URINE GLUCOSE (UA) NEGATIVE (NEGATIVE); URINE KETONE NEGATIVE (NEGATIVE); URINE LEUKOCYTE ESTERASE NEGATIVE (NEGATIVE); URINE NITRITE NEGATIVE (NEGATIVE); URINE PROTEIN TRACE (NEGATIVE); URINE UROBILINOGEN 0.2 E.U./dL (0.20 - 1.00)
== END 2017-04-11 14:55 | disposition home or self-care (01) ==
LOC: ER 09:08
DX: R11.2 Nausea with vomiting, unspecified (principal); R19.7 Diarrhea, unspecified; E11.22 Type 2 diabetes mellitus with diabetic chronic kidney disease; N18.9 Chronic kidney disease, unspecified; Z79.84 Long term (current) use of oral hypoglycemic drugs
CPT/HCPCS: 99284 ×2; 96374; 96361; 83690; 85025; 80076; 80048; 81003; J2405; J7030

== ENCOUNTER 2017-06-12 10:10 | Inpatient (IN) | payer MEDICARE, MEDICAID ==
[2017-06-12] MEDS ORDERED: 0.9 % SODIUM CHLORIDE 1000ML 1,000 ML IV PRN ×2 (10:24→15:54)
--- NOTE | 2017-06-12 10:55 | Emergency Department Record ---
History of Present Illness - General Chief complaint: Vomiting Stated complaint: VOMITING BILE X2 Source: Patient Mode of Arrival: EMS Limitations: No limitations - History of Present Illness Initial comments: 81 yo male presents with vomiting that by history started early in the morning. The patient on arrival states his pain and nausea are resolved. He resides at a local nursing facility. No report of diarrhea, blood in the vomit or stools. He is a limited historian due to memory and hard of hearing. He does state he is not having current symptoms. MD complaint: Nausea, Vomiting -: Unknown Description of Vomiting: Bilious Associated Abdominal Pain: No Location: Diffuse Severity: Mild Quality: Other Improves with: None Worsens with: None Associated Symptoms: Denies other symptoms - Related Data Home Medications Medication Instructions Recorded Confirmed Last Taken Aspirin [Aspir-Low] 81 mg PO DAILY 06/12/17 06/12/17 06/12/17 Citalopram Hydrobromide [Celexa] 10 mg PO DAILY 06/12/17 06/12/17 06/11/17 Guaifenesin/Dextromethorphan 5 ml PO ASDIR 06/12/17 06/12/17 Unknown [Robafen-Dm Syrup] Lorazepam [Ativan] 1 mg PO QHS PRN 06/12/17 06/12/17 06/11/17 Trazodone HCl [Desyrel] 50 mg PO QHS 06/12/17 06/12/17 06/11/17 Previous Rx's Medication Instructions Recorded Acetaminophen [Tylenol 325Mg] 650 mg PO Q6H #50 tablet 06/19/16 Ondansetron [Zofran Odt] 4 mg SL .Q4-6H PRN #12 tab.rapdis 04/11/17 Allergies Allergy/AdvReac Type Severity Reaction Status Date / Time NO KNOWN DRUG ALLERGY Allergy PT UNSURE Uncoded 07/20/16 11:35 OF REACTION Travel Screening - Travel/Exposure Within Last 30 Days Have you traveled within the last 30 days?: No - Travel/Exposure Within Last Year Have you traveled outside the [place] in the last year?: No - Additonal Travel Details Have you been exposed to anyone with a communicable illness?: No - Travel Symptoms Symptom Screening: None Review of Systems ROS unobtainable: Other (Memory poor. Poor historian regarding current events) Past Medical History - SOCIAL HISTORY Smoking Status: Never smoker Alcohol Use: None Drug Use: None - RESPIRATORY Hx Respiratory Disorders: No - CARDIOVASCULAR Hx Cardio Disorders: No - NEURO Hx Neuro Disorders: Yes Hx CVA: Yes (X2) Comment:: Shunt place - GI Hx GI Disorders: No - Hx Genitourinary Disorders: Yes Hx Dialysis: No Hx Renal Disease: Yes (CKD) - ENDOCRINE Hx Endocrine Disorders: Yes Hx Diabetes: Yes (NIDDM) - MUSCULOSKELETAL Hx Musculoskeletal Disorders: No - PSYCH Hx Psych Problems: No - HEMATOLOGY/ONCOLOGY Hx Hematology/Oncology Disorders: No Family Medical History Any Significant Family History?: No Physical Exam - General General Appearance: Alert, Cooperative, No acute distress Limitations: No limitations - Head Head exam: Normal inspection - Eye Eye exam: Normal appearance, PERRL. negative: Conjunctival injection, Scleral icterus - ENT ENT exam: Normal exam Ear exam: Normal external inspection Nasal Exam: Normal inspection Mouth exam: Normal external inspection - Neck Neck exam: Normal inspection, Full ROM. negative: Tenderness - Respiratory Respiratory exam: Normal lung sounds bilaterally. negative: Respiratory distress - Cardiovascular Cardiovascular Exam: Regular rate, Normal rhythm, Normal heart sounds - GI/Abdominal GI/Abdominal exam: Soft, Other (Very soft abdomen). negative: Distended, Guarding, Rebound, Rigid, Tenderness - Rectal Rectal exam: Deferred - exam: Deferred - Extremities Extremities exam: Normal inspection, Full ROM, Normal capillary refill. negative: Tenderness - Back Back exam: Reports: Normal inspection, Full ROM. Denies: Muscle spasm, Rash noted, Tenderness - Neurological Neurological exam: Alert, Normal gait, Oriented X3 - Psychiatric Psychiatric exam: Normal affect, Normal mood - Skin Skin exam: Dry, Intact, Normal color, Warm Course - Reevaluation(s) Reevaluation #1: 06/12/17 11:51 The patient is now having diarrhea 06/12/17 11:52 No acute changes on the CBC or BMP except for the chronic renal failure that is unchanged. 06/12/17 13:03 The patient has had continued diarrhea. Stool sample sent 06/12/17 13:[address] scan was read as no acute process. No inflammation or inflection. 06/12/17 14:09 I ESE Wang of the admission service for admission for continued hydration until vomiting and diarrhea resolve. His chronic renal failure is stable at its baseline. Stool was sent for studies. 06/12/17 15:02 The patient was admitted to the FP service but he is a Dr Nye patient. Dr Nye was made aware of the admission. 06/12/17 15:03 Stool studies pending at the time of admission Medical Decision Making - Lab Data Result diagrams: 06/12/17 11:00 06/12/17 11:00 Lab Results 06/12/17 Range/Units 10:25 Fibrinogen Cancelled Lupus Anticoagulant Cancelled LA Mixing Study Interp Cancelled Lupus Anticoag aPTT Cancelled LA PTT Baseline Cancelled Protein C Activity Cancelled APC - PTT Baseline Cancelled Protein S Activity Cancelled Antithrombin III Activ Cancelled Factor V Leiden Cancelled Homocysteine Cancelled Anti-Cardiolipin IgG Ab Cancelled Anti-Cardiolipin IgM Ab Cancelled Cardiolipin Ab Comment Cancelled Prothrombin [id number] Mut Cancelled Disposition Disposition: Admit Clinical Impression: Vomiting and diarrhea, Dehydration Disposition: Still a Patient at [facility] Decision to Admit: Admit from ER Decision to Admit Date: 06/12/17 Decision to Admit Time: 14:05 Condition: (2) Stable Forms: Patient Portal Access Time of Disposition: 14:05 Quality - Quality Measures Quality Measures: N/A - Blood Pressure Screening Does Patient Have Any of the Following: Active Dx of HTN Blood Pressure Classification: Pre-Hypertensive BP Reading Systolic Measurement: 127 Diastolic Measurement: 70 Screening for High Blood Pressure: Patient Exclusion, Hx of HTN [G9744]
[2017-06-12 11:09] LABS: BASO % 0.3 % (0-6); EOS % 1.6 % (0-6); GRAN % 68.9 % (47-80); HEMATOCRIT 41.9 % (42.0-52.0); HEMOGLOBIN 13.5 gm/dl (14.0-18.0); MEAN CELL VOLUME 94.8 fl (81-97); MEAN CORPUSCULAR HEMOGLOBIN 30.5 pg (27-33); MEAN CORPUSCULAR HGB CONC 32.2 g/dl (32-36); MEAN PLATELET VOLUME 10.5 fl (7.4-10.4); MONO % 8.2 % (0-9); PLATELET COUNT 119 K/uL (130-400); RED BLOOD COUNT 4.42 M/uL (4.40-5.70); RED CELL DISTRIBUTION WIDTH 16.1 % (11.5-14.5); WHITE BLOOD COUNT W/O DIFF 3.7 K/uL (4.2-12.2)
[2017-06-12 11:18] LABS: CREATININE 3.8 mg/dL (0.7-1.2)
[2017-06-12 11:22] LABS: INR 1.1; PARTIAL THROMBOPLASTIN TIME 26.4 SECONDS (24.5-39.1); PROTHROMBIN TIME (PATIENT) 11.5 SECONDS (9.5-12.1)
[2017-06-12 13:06] LABS: TOTAL PROTEIN 7.1 g/dL (6.6-8.7)
[2017-06-12 13:10] LABS: ALT/SGPT 17 U/L (<41)
[2017-06-12 13:11] LABS: ALBUMIN 4.4 g/dL (4.0-5.0); ALKALINE PHOSPHATASE 95 U/L (40-129); AST/SGOT 21 U/L (10.0-50.0); BILIRUBIN,DIRECT < 0.2 mg/dL (0-0.3)
[2017-06-12 15:02] LABS: CRYPTOSPORIDIUM PARVUM ANTIGEN NOT DETECTED (NOT DETECT); GIARDIA LAMBLIA ANTIGEN NOT DETECTED (NOT DETECT); ROTOVIRUS NOT DETECTED (NOT DETECT)
[2017-06-12 15:37] LABS: MOLECULAR C DIFF TOXIN SCREEN NOT DETECTED (NOT DETECT)
[2017-06-12] MEDS ORDERED: ONDANSETRON HCL IV 4 MG/2 ML VIAL IVP PRN (15:54)
[2017-06-12] MEDS ORDERED: ZINC OXIDE 28.35 GM TUBE TOP PRN (16:43)
[2017-06-12] MEDS ORDERED: LORAZEPAM 0.5 MG TABLET PO PRN (17:12)
[2017-06-12] MEDS: TRAZODONE 50 MG TABLET PO SCH (21:02)
[2017-06-12] MEDS: ROPINIROLE HCL 1 MG TABLET PO SCH (21:02)
[2017-06-13] MEDS: PANTOPRAZOLE SODIUM 40 MG TABLET PO SCH (06:18)
[2017-06-13 06:59] LABS: BASO % 0.4 % (0-6); EOS % 2.9 % (0-6); HEMATOCRIT 37.8 % (42.0-52.0); HEMOGLOBIN 11.9 gm/dl (14.0-18.0); LYMPH % 20.7 % (16-45); MEAN CELL VOLUME 94.7 fl (81-97); MEAN CORPUSCULAR HEMOGLOBIN 29.8 pg (27-33); MEAN CORPUSCULAR HGB CONC 31.5 g/dl (32-36); MEAN PLATELET VOLUME 10.5 fl (7.4-10.4); PLATELET COUNT 110 K/uL (130-400); RED BLOOD COUNT 3.99 M/uL (4.40-5.70); RED CELL DISTRIBUTION WIDTH 16.1 % (11.5-14.5); WHITE BLOOD COUNT W/O DIFF 2.8 K/uL (4.2-12.2)
--- NOTE | 2017-06-13 07:22 | CT SCAN REPORT ---
EXAM: CT OF THE ABDOMEN AND PELVIS HISTORY: NAUSEA AND VOMITING. TECHNIQUE: CT of the abdomen and pelvis was performed with oral contrast only. Lack of IV contrast limits evaluation of solid visceral organs. Comparison: 10/08/07 CT. FINDINGS: Limited evaluation of the lung bases shows cardiomegaly. Small hiatal hernia. The osseous structures are grossly intact. Probable fatty infiltrative change to the liver. The spleen is enlarged measuring 14 cm. The adrenal glands and pancreas are unremarkable. Multiple bilateral renal cysts. Negative for urinary tract calculus or hydronephrosis. Status post cholecystectomy. No evidence for bowel obstruction. No free air or free fluid. Fat containing inguinal hernias bilaterally, greater on the left. Enlargement of the prostate. Correlate with PSA levels. Sigmoid diverticulosis. No CT evidence for diverticulitis. IMPRESSION: 1. SIGMOID DIVERTICULOSIS. NO CT EVIDENCE FOR DIVERTICULITIS. 2. BILATERAL RENAL CYSTS. NEGATIVE FOR URINARY TRACT CALCULUS OR HYDRONEPHROSIS. 3. ENLARGEMENT OF THE PROSTATE. CORRELATE WITH PSA LEVELS. 4. SPLENOMEGALY, ABOVE. FATTY INFILTRATIVE CHANGE TO THE LIVER. JOB NUMBER: [id number] [facility]
[2017-06-13 08:09] LABS: CREATININE 3.3 mg/dL (0.7-1.2)
[2017-06-13] MEDS ORDERED: GLIMEPIRIDE 2 MG TABLET PO SCH (10:00)
[2017-06-13] MEDS: CLONIDINE HCL 0.1 MG TABLET PO SCH (10:31)
[2017-06-13] MEDS: ENOXAPARIN 30 MG/0.3 ML SYR SQ SCH (10:31)
[2017-06-13] MEDS: ASPIRIN 81 MG TABEC PO SCH (10:32)
[2017-06-13] MEDS: ROPINIROLE HCL 1 MG TABLET PO SCH ×2 (10:33→21:05)
[2017-06-13] MEDS: CITALOPRAM 20 MG TABLET PO SCH (10:34)
[2017-06-13] MEDS: SIMVASTATIN 20 MG TABLET PO SCH (10:34)
--- NOTE | 2017-06-13 11:00 | History and Physical Report ---
DATE: 06/12/2017 at 5:30 p.m. CHIEF COMPLAINT: Vomiting and diarrhea. [facility] resident and neurovirus is going through the [facility] senior assisted living home. He also has a history of chronic renal failure. HISTORY OF PRESENT ILLNESS: This 81-year-old male started having vomiting and diarrhea last night. Actually, at the [facility] he had mostly vomiting and it all started this morning with vomiting of bile material. EMS was called. He was transferred to the emergency department. Dr. Lamb evaluated the patient. Did a CT scan which showed no acute changes. IV fluids and laboratory. Renal status is about the same as it was in April 2017. He was admitted to the hospital for hydration and further evaluation of vomiting and diarrhea to prevent him from getting into more acute renal failure with his diarrhea and the possibility of becoming more dehydrated. PAST MEDICAL HISTORY: Chronic renal failure, asthma, benign essential hypertension, cataracts, diabetes mellitus type 2, CVA in the past many years ago, hard of hearing, hypercholesterolemia, obstructive sleep apnea, COPD, restless leg syndrome. ALLERGIES: No known allergies. MEDICATIONS: 1. Ropinirole 2 mg 1 b.i.d. 2. Simvastatin 20 mg h.s. 3. Trazodone 50 mg at bedtime. 4. Triple antibiotics p.r.n. for skin lesions. His weight has been steady at about 177 at [facility]. 5. Tylenol 325 p.r.n. 6. Banophen 25 mg 1 b.i.d. 7. Compazine p.r.n. 10 mg b.i.d. 8. Lorazepam 1 mg at bedtime p.r.n. 9. Antivert 25 mg 2 tablets by mouth daily p.r.n. and 3 times a day. 10. Zofran 4 mg every 4-6 hours p.r.n. 11. Refresh eyedrops p.r.n. 12. Robafen DM cough syrup 5 mg every 6 hours p.r.n. cough. The patient is a do not resuscitate patient. He graduated from hospice. He is getting Accu-Cheks at [facility] daily. 13. Aspirin 81 mg daily. 14. Calcitriol 0.25 mg once weekly on Friday. 15. Celexa 10 mg daily. 16. Clonidine 0.3 mg daily. 17. Lasix 40 mg daily. 18. Glimepiride 2 mg once a day. 19. Lorazepam 1 mg at h.s. 20. Meloxicam 7.5 mg daily. 21. Metolazone 2.5 mg, which is Zaroxolyn, daily. 22. Nystatin suspension swish and swallow 4-5 times a day p.r.n. thrush. 23. Omeprazole 20 mg daily. 24. Refresh eyedrops 2-4 times a day. FAMILY/PSYCHOSOCIAL HISTORY: Unobtainable because of the patient's mental status, dementia. REVIEW OF SYSTEMS: Obtained from the chart, ICAL, and essentially unobtainable from the patient. PHYSICAL EXAMINATION: VITALS: Height 5 feet 6 inches, weight 176 pounds. Temperature 98.8, pulse 68, blood pressure 116/58, respiratory rate 18, pulse ox 96% on room air. HEENT: Pupils are equal, round, and reactive to light and accommodation. Extraocular muscles are intact. Throat is clear. Nose is clear. Tympanic membranes are mcfadden. Throat mucous membranes are dry. NECK: Supple. No jugular venous distention. No hepatojugular reflux. No carotid bruits. Thyroid is smooth. CARDIOVASCULAR: Regular rate and rhythm without murmurs, clicks, rubs, or gallops. RESPIRATORY: Clear to auscultation and percussion. ABDOMEN: Soft, nontender. No hepatosplenomegaly, no masses, no tenderness. Bowel sounds are active. No bruits. EXTREMITIES: No pitting edema. No cyanosis, no clubbing. Full range of motion. Peripheral pulses are good. BREASTS: Normal male breasts. GENITALIA: Deferred. NEUROLOGIC: Cranial nerves II-XII intact. No gross defects. Sensation normal, strength normal. Deep tendon reflexes equal bilaterally with Babinski negative. MENTAL STATUS: Alert. He is oriented to person and place but not time. Short-term memory is poor. IMPRESSION: 1. Diarrhea. 2. Vomiting. 3. Gastroenteritis. 4. Chronic renal failure. 5. Possible neurovirus. 6. Status post asthma. 7. Status post hypertension. 8. Status post cataracts. 9. Status post chronic renal disease. 10. Status post diabetes mellitus type 2. 11. Status post hard of hearing. 12. Status post hypercholesterolemia. 13. Status post obstructive sleep apnea. 14. Status post chronic obstructive pulmonary disease. 15. Primary osteoarthritis in multiple joints. 16. Restless leg syndrome. PLAN: IV fluids. Watch his electrolytes and BUN and creatinine status. Stool cultures were obtained. INPATIENT CERTIFICATION: Admit to inpatient care. Based on my medical assessment, after consideration of patient's risk factors, age, comorbidities, and patient's presenting symptoms and acuity, I expect that this patient will remain in the hospital greater than or equal to 2 midnights and that the services needed warrant inpatient care because of gastroenteritis, chronic renal failure. Estimated length of stay is 3 days. The patient may reasonably be expected to be discharged or transferred to a hospital within 96 hours after admission to [facility]. Services needed are IV fluids, electrolyte monitoring, kidney function monitoring. I certify that my determination is in accordance with my understanding of Medicare requirements for reasonable and necessary inpatient services. [email or web address]
--- NOTE | 2017-06-13 15:09 | Rehab Evaluation ---
Patient Information - Patient Information Diagnosis: Vomiting, diarrhea, dehydration, chronic renal insufficiency Ordered Treatment: PT Evaluate and Treat Status: Initial Evaluation Surgery: No Past Medical/Surgical Hx: PAST MEDICAL/SURGICAL HISTORY Past Surgical History FISTULA PLACED RT ARM (NOT USED) GWS TO LEFT ARM MULTIPLE LEFT EYE SURGERIES Ventricular shunt PMH - Respiratory Hx Respiratory Disorders No PMH - Cardiovascular Hx Cardiovascular Disorders No PMH - Neuro Hx Neurological Disorders Yes Hx Cerebrovascular Accident Yes: X2 Comment: Shunt place PMH - GI Hx Gastrointestinal Disorders No PMH - Hx Genitourinary Disorders Yes Hx Dialysis No Hx Renal Disease Yes: CKD PMH - Endocrine Hx Endocrine Disorders Yes Hx Diabetes Yes: NIDDM PMH - Musculoskeletal Hx Musculoskeletal Disorders No PMH - Psych Hx Psychiatric Problems Yes Hx Anxiety Yes Hx Depression Yes PMH - Hematology/Oncology Hx Hematology/Oncology No Disorders Social History: Detail (Lives at [facility]. Per nursing intake, the patient used a wheelchair as his primary mode of mobility. The patient's room is all handicap accessible.) Precautions: Other (Contact Precautions) - Time With Patient Total Time Spent With Patient (Min): 30 Treatment Procedures: Detail (PT Initial Evaluation) Objective Data - Pain Pain Present: No Pain Intensity: 0 Pain Scale Used: Numeric (1 - 10) - Mental Status Patient Orientation: Person (Orientation not assessed due to patient irritability and difficulty hearing questions. The patient expressed multiple times that he wanted to go back to bed.) - ROM Other (The patient was within functional limits in the LE, but ROM was not formally assessed. The patient demonstrated ROM that was WNL in shoulder flexion. Other UE ROM was not formally assessed, but was within functional limits for activities completed at initial evaluation.) - Strength/Tone Other (The patient's strength in the UEs and LEs were not formally assessed due to patient desire to go back to bed and difficulty with commands due to hearing difficulty. However, the patient had functional strength for activities completed during evaluation. The patient did say that he knew his LEs were weak and that makes walking difficult for him.) - Bed Mobility Needs Assist (Supine to sit - required min. assist x 1 to complete transfer. Sit to supine - patient was independent.) - Transfers Needs Assist (Sit to stand - Pt. required min. assist x 1. Stand to sit - Independent.) - Balance Balance Sitting: Fair (Patient leaned back with trunk during UE AROM testing.) Balance Standing: Fair (Used walker for support when standing and walking.) - Gait Detail (The patient required CGA x2 and use of 2WW for ambulation. The patient was able to ambulate from his bedside to the doorway (about 11 feet) before becoming fatigued.) Therapy Assessment - Therapy Assessment Detail (The patient had functional ROM and strength, but formal testing was not completed due to patient's hearing deficits. The patient required some assistance for transfers, bed mobility, and gait activities. The patient also had increased fatigue with activity, especially after gait. The patient would benefit from further Home care PT at [facility] once discharged for further gait training, transfer training, and LE strengthening activities.) Problem List - Problem List Physical Therapy Problem List: Detail (1) Decreased LE strength 2) Difficulty with transfers 3) Difficulty with bed mobility 4) Increased fatigue with activities.) Goals - Goals Physical Therapy Goals: 1) The patient will be able to ambulate household distances with supervision so he can get to the restroom effectively. 2) The patient will be independent with bed mobility and transfers to increase function in the home environment. 3) The patient will increase LE strength for increased independence with transfers and bed mobility. Prognosis - Prognosis Good Plan - Plan Physical Therapy Plan: The patient will be seen 1x/day M-F until discharge from [facility] for gait training, transfer training, and LE strengthening activities.
[2017-06-13] MEDS: TRAZODONE 50 MG TABLET PO SCH (21:05)
[2017-06-14] MEDS: PANTOPRAZOLE SODIUM 40 MG TABLET PO SCH (06:19)
[2017-06-14 07:38] LABS: CREATININE 3.3 mg/dL (0.7-1.2)
--- NOTE | 2017-06-14 07:44 | Discharge Note ---
VTE H&P Assessment - Risk for VTE Risk for VTE: Yes Risk Level: Moderate Risk Assessment Date: 06/13/17 Risk Assessment Time: 17:00 VTE Orders Placed or Will Be Placed: Yes Discharge Medications - Discharge Medications Prescriptions: Ondansetron [Zofran Odt] 4 mg PO Q6HR #30 tab.rapdis Glimepiride [Amaryl] 1 mg PO DAILYAC #30 tablet Home Medications: Ambulatory Orders Acetaminophen [Tylenol 325Mg] 650 mg PO Q6H #50 tablet 06/19/16 [Last Taken 11/22] Calcitriol 0.25 mcg PO WEEKLY 06/19/16 [Last Taken 06/12/17] Clonidine HCl 0.3 mg PO DAILY 06/19/16 [Last Taken 06/12/17] Omeprazole [Prilosec] 20 mg PO DAILY 06/19/16 [Last Taken 06/12/17] Simvastatin [Zocor] 20 mg PO DAILY 06/19/16 [Last Taken 06/12/17] Aspirin [Aspir-Low] 81 mg PO DAILY 06/12/17 [Last Taken 06/12/17] Citalopram Hydrobromide [Celexa] 10 mg PO DAILY 06/12/17 [Last Taken 06/11/17] Lorazepam [Ativan] 1 mg PO QHS PRN 06/12/17 [Last Taken 06/11/17] Ropinirole HCl [Requip] 2 mg PO BID 06/12/17 [Last Taken 06/12/17 08:00] Trazodone HCl [Desyrel] 50 mg PO QHS 06/12/17 [Last Taken 06/11/17] Glimepiride [Amaryl] 1 mg PO DAILYAC #30 tablet 06/14/17 [Last Taken Unknown] Ondansetron [Zofran Odt] 4 mg PO Q6HR #30 tab.rapdis 06/14/17 [Last Taken Unknown] Trazodone HCl [Desyrel] 50 mg PO QHS tab 06/14/17 [Last Taken Unknown] Zinc Oxide [Desitin] 28.35 gm TOP ASDIR PRN tube 06/14/17 [Last Taken Unknown] Discharge Note - Date Date of Discharge Note: 06/14/17 Disposition: [facility] Condition: (2) Stable Additional Instructions: follow up with Dr. Parris ragsdale at [facility] in the afternoon decrease glimepride to 1 mg because of a low sugar but it may need to go back to 2 mg when his diet improves. stop lasix and metolazone but may need to add this back labs outpatient on bmp, Hgaic, Urine microalbumin done at [facility], June 17 Forms: Patient Portal Access
[2017-06-14] MEDS: ENOXAPARIN 30 MG/0.3 ML SYR SQ SCH (09:12)
[2017-06-14] MEDS: ROPINIROLE HCL 1 MG TABLET PO SCH (09:12)
[2017-06-14] MEDS: CLONIDINE HCL 0.1 MG TABLET PO SCH (09:12)
[2017-06-14] MEDS: SIMVASTATIN 20 MG TABLET PO SCH (09:13)
[2017-06-14] MEDS: ASPIRIN 81 MG TABEC PO SCH (09:13)
[2017-06-14] MEDS: CITALOPRAM 20 MG TABLET PO SCH (09:13)
[2017-06-14] MEDS: GLIMEPIRIDE 2 MG TABLET PO SCH ×2 (09:14→09:18)
--- NOTE | 2017-06-16 12:20 | Discharge Summary ---
DATE OF ADMISSION: 06/12/2017 DATE OF DISCHARGE: 06/14/2017 Attending physician: Benito Nye DO DISCHARGE DIAGNOSES: 1. Acute gastroenteritis. 2. Diarrhea resolved. 3. Vomiting resolved. 4. Renal failure, acute on chronic, improving. 5. Status post hypertension. 6. Status post diabetes mellitus type 2. 7. Status post hard of hearing. 8. Status post hypercholesterolemia. 9. Status post obstructive sleep apnea. 10. Status post COPD. 11. Status post arthritis. 12. Status post restless leg syndrome. 13. Status post cataracts. 14. Possible norovirus, cultures pending. REASON FOR HOSPITALIZATION: Vomiting, diarrhea, [facility] resident, and norovirus is going through [facility]. He also has chronic renal failure and looks like he is in acute on chronic renal failure. This 81-year-old male started vomiting and diarrhea the night prior to admission. [facility] said he is mostly vomiting, but while in the emergency department, the diarrhea started. He vomited up bile material at [facility]. EMS was called. He is very weak, could not ambulate, he was transported to the hospital. CT scan of the abdomen showed no acute changes. IV fluids and laboratory done in the emergency department and he was admitted to the hospital for hydration, further evaluation, and prevention of severe renal failure. He had acute on chronic renal failure. SIGNIFICANT FINDINGS: His BUN was 52, creatinine was 3.8, white count was 3700, hemoglobin was 13.7. His discharge basic metabolic profile showed sodium is 140, potassium is 4.8, chloride is 102, BUN is 36, creatinine is 3.3. Bicarb 25. CAT scan showed sigmoid diverticulosis, no CT evidence for diverticulitis, bilateral renal cyst, negative for urinary tract calculus, or hydronephrosis, enlargement of the prostate, splenomegaly, fatty infiltrative changes to the liver. THERAPY PROVIDED: He was given IV fluids, initially in the ER he was given a bolus of fluid at 100 mL an hour. He went from clear liquids to a regular diet on the day of discharge, feeling much better. His energy levels are back to his baseline. He is talkative the way he typically is, he does have some dementia. HOSPITAL COURSE: Gradually improved. CONDITION ON DISCHARGE: Much improved. DISCHARGE INSTRUCTIONS: Follow up with Dr. Nye on Friday at [facility] in the afternoon. Stop the Lasix and Zaroxolyn, the other name for it is metolazone. He may need to restart those, if he starts to retain fluid or his blood pressure goes up. We will decrease the glimepiride Amaryl to 1 mg. He had a low sugar reaction, but it might be because he was not eating enough. This may need to go back to 2 mg after he gets back to [facility] and his diet goes back to a typical diet. He is to continue his other medications which are: 1. Ropinirole Requip 2 mg b.i.d. 2. Simvastatin 20 mg at h.s. 3. Trazodone 50 mg at bedtime. 4. Lorazepam 1 mg p.r.n. at night. 5. Zofran 4 mg every 6 hours p.r.n. 6. Aspirin 81 mg per day. 7. Calcitrol 0.25 mg once weekly on Fridays. 8. Celexa 10 mg daily. 9. Clonidine 0.3 mg daily. 10. Lasix is being held, he may need to add that back on. 11. Glimepiride 1 mg once a day with a reduced dose, that may need to go back to 2 mg depending on his sugars. 12. Lorazepam 1 mg at h.s. 13. Meloxicam 7.5 mg daily. 14. Omeprazole 20 mg daily. MTDD
== END 2017-06-14 16:23 | DRG 392 ==
LOC: ER 10:10 → MEDSURG 15:39
PROVIDERS: ADMIT Emergency Medicine; ATTEND Emergency Medicine
DX: A08.11 Acute gastroenteropathy due to Norwalk agent (principal); N18.9 Chronic kidney disease, unspecified; E11.9 Type 2 diabetes mellitus without complications; Z86.73 Personal history of transient ischemic attack (TIA), and cerebral infarction without residual deficits; I10 Essential (primary) hypertension; N28.89 Other specified disorders of kidney and ureter; E78.00 Pure hypercholesterolemia, unspecified; M19.90 Unspecified osteoarthritis, unspecified site; J44.9 Chronic obstructive pulmonary disease, unspecified; M19.91 Primary osteoarthritis, unspecified site; G25.81 Restless legs syndrome
CPT/HCPCS: 36416; 74176; 80048; 80076; 82272; 82948; 83605; 85025; 85610; 85730; 87329; 87425; 87493; 89055; 96361; 96374; 99285; J1650; J2405

== ENCOUNTER 2017-06-18 05:59 | Emergency (ER) | payer MEDICARE, MEDICAID ==
--- NOTE | 2017-06-18 06:19 | Emergency Department Record ---
History of Present Illness - General Chief Complaint: Shortness of breath Stated Complaint: ARLEY Time Seen by Provider: 06/18/17 06:16 Source: EMS Mode of Arrival: Ambulatory Limitations: Altered mental status - History of Present Illness Initial Comments: 81 yo male presents to ED via EMS for evaluation of difficulty breathing this morning associated with a fever. Patient has a history of ESRD on dialysis, was found to have increased RR and room-air oxygen saturation of 80% this morning, does not use oxygen at his baseline. The remainder of the HPI is limited by patient's mental status. MD Complaint: Shortness of breath Onset/Timin -: Hour(s) Consistency: Constant Known History Of: Diabetes Associated Symptoms: Cough, Fever, Nausea/vomiting Treatments Prior to Arrival: Bronchodilator, Oxygen - Related Data Home Oxygen Therapy: No Home Oxygen Amount: other Previous Rx's Medication Instructions Recorded Acetaminophen [Tylenol 325Mg] 650 mg PO Q6H #50 tablet 06/19/16 Glimepiride [Amaryl] 1 mg PO DAILYAC #30 tablet 06/14/17 Ondansetron [Zofran Odt] 4 mg PO Q6HR #30 tab.rapdis 06/14/17 Trazodone HCl [Desyrel] 50 mg PO QHS tab 06/14/17 Zinc Oxide [Desitin] 28.35 gm TOP ASDIR PRN tube 06/14/17 Allergies Allergy/AdvReac Type Severity Reaction Status Date / Time NO KNOWN DRUG ALLERGY Allergy PT UNSURE Uncoded 07/20/16 11:35 OF REACTION Travel Screening - Travel/Exposure Within Last 30 Days Have you traveled within the last 30 days?: No Review of Systems ROS unobtainable: Due to mental status Past Medical History - SOCIAL HISTORY Smoking Status: Never smoker Alcohol Use: None Drug Use: None - RESPIRATORY Hx Respiratory Disorders: No - CARDIOVASCULAR Hx Cardio Disorders: No - NEURO Hx Neuro Disorders: Yes Hx CVA: Yes (X2) Comment:: Shunt place - GI Hx GI Disorders: No - Hx Genitourinary Disorders: Yes Hx Dialysis: No Hx Renal Disease: Yes (CKD) - ENDOCRINE Hx Endocrine Disorders: Yes Hx Diabetes: Yes (NIDDM) - MUSCULOSKELETAL Hx Musculoskeletal Disorders: No - PSYCH Hx Psych Problems: Yes Hx Anxiety: Yes Hx Depression: Yes - HEMATOLOGY/ONCOLOGY Hx Hematology/Oncology Disorders: No Family Medical History Any Significant Family History?: No Physical Exam - General General Appearance: Alert, Cooperative, Moderate distress, Other (AO x 1 on examination (name only)) Limitations: Altered mental status - Head Head exam: Atraumatic, Normocephalic, Normal inspection Head exam detail: negative: Abrasion, Contusion, Coreas's sign, General tenderness, Hematoma, Laceration - Eye Eye exam: Normal appearance. negative: Conjunctival injection, Periorbital swelling, Periorbital tenderness, Scleral icterus - ENT Ear exam: negative: Auricular hematoma, Auricular trauma Nasal Exam: negative: Active bleeding, Discharge, Foreign body Mouth exam: negative: Drooling, Laceration, Tongue elevation - Neck Neck exam: Normal inspection. negative: Meningismus, Tenderness - Respiratory Respiratory exam: Decreased breath sounds, Respiratory distress, Wheezes. negative: Rhonchi, Stridor - Cardiovascular Cardiovascular Exam: Regular rate, Normal rhythm, Normal heart sounds - GI/Abdominal GI/Abdominal exam: Soft, Distended, Other (Ecchymosis to the abdominal wall likel the result of Lovenox administration). negative: Rebound, Rigid, Tenderness - Rectal Rectal exam: Deferred - exam: Deferred - Extremities Extremities exam: Normal inspection. negative: Pedal edema, Tenderness - Neurological Neurological exam: Altered - Psychiatric Psychiatric exam: Normal affect, Normal mood - Skin Skin exam: Normal color. negative: Abrasion Type of lesion: negative: abrasion Course Vital Signs 06/18/17 06:05 Temperature 102.2 F H Pulse Rate 94 H Respiratory 40 H Rate Blood Pressure 141/72 Pulse Ox 94 L - Reevaluation(s) Reevaluation #1: 06/18/17 06:18 EKG: NSR 91 Normal axis, normal intervals Mild artifact without acute ST-T wave changes Reevaluation #2: 06/18/17 06:34 Portable CXR: RML infiltrate Will initiate antibiotics for HCAP/Sepsis at this time. Reevaluation #3: 06/18/17 06:46 Labs reviewed, WBC 6.1 with 87% neutrophils (3% Bands) Hgb 12.1 LA 2.8 BUN 37/Creatinine 3.4 (at baseline compared with previous) AG 17. Reevaluation #4: 06/18/17 06:49 [facility]-call contacted per patient's choice, no ICU/Step-down bed available currently. [facility] contacted for admission. Reevaluation #5: 06/18/17 07:20 AM Case was discussed with Dr. Valenzuela, will accept transfer to ICU 06/18/17 08:33 Portable CXR was reviewed, central line is in satisfactory placement (perhaps slightly deep). Dr. Valenzuela was updated on central line placement and likely need for mild adjustment. Levophed was initiated for continued hypotension: Last BP 74/45, pulse 70's. 06/18/17 08:43 Dr. Serina khanna, discussed placement of central line and initiation of Levophed prior to transfer. ICU bed has been assigned, awaiting EMS for transfer at this time. Procedures - Central Line Placement Internal jugular (L) Consent Obtained: Verbal consent Time Out Performed: Yes Patient Placed on Monitor/Pulse Ox: Yes MD Prep: Mask, Gloves Central Line Prep: Chlorhexidine scrub, Sterile drapes applied Local Anesthesia Used: Lidocaine 1%, With Epi Amount of Anesthesia Used (mls): 3 Ultrasound Used for Placement: Yes Central Line Lumen Inserted: Triple Bloods Obtained for Lab: Yes Central Line Position: Good blood return, All ports aspirated, flushed, capped, Sutured in place with 2-0 silk Dressing Applied: Tegaderm Post Procedure X-Ray: Tip of catheter in good position Patient Tolerated Procedure: Good Complications: None Medical Decision Making - Lab Data Result diagrams: 06/18/17 06:15 06/18/17 06:15 Critical Care Time Critical Care Time: Yes Total Critical Care Time: 60 Critical Care Time: Diagnosis of pneumonia and sepsis, treatment for hypotension and sepsis due to HCAP, initiation of transfer to [facility] ICU for further management. Disposition Disposition: Transfer Clinical Impression: HCAP (healthcare-associated pneumonia) Sepsis Qualifiers: Sepsis type: sepsis due to unspecified organism Qualified Code(s): A41.9 - Sepsis, unspecified organism CRF (chronic renal failure) Qualifiers: Chronic kidney disease stage: unspecified stage Qualified Code(s): N18.9 - Chronic kidney disease, unspecified Hypotension (arterial) Qualifiers: Hypotension type: unspecified hypotension type Qualified Code(s): I95.9 - Hypotension, unspecified Disposition: Acute Care Hospital Transfer Transfer To: [facility] Reason For Transfer: Sepsis, RML pneumonia Accepting Physician: Nicolas Time Discussed w/Accepting Physician: 07:20 Condition: (2) Stable Forms: Patient Portal Access Time of Disposition: 08:33 Quality - Quality Measures Quality Measures: N/A - Blood Pressure Screening Does Patient Have Any of the Following: Active Dx of HTN Blood Pressure Classification: Hypertensive Reading Systolic Measurement: 141 Diastolic Measurement: 72 Screening for High Blood Pressure: Patient Exclusion, Hx of HTN [[id number]]
[2017-06-18] MEDS: ACETAMINOPHEN 1,000 MG/100 ML BTL IVPB ONE (06:20)
[2017-06-18 06:26] LABS: BASO % 0.2 % (0-6); EOS % 0.2 % (0-6); HEMATOCRIT 36.8 % (42.0-52.0); HEMOGLOBIN 12.1 gm/dl (14.0-18.0); MEAN CELL VOLUME 93.6 fl (81-97); MEAN CORPUSCULAR HEMOGLOBIN 30.7 pg (27-33); MEAN CORPUSCULAR HGB CONC 32.9 g/dl (32-36); MEAN PLATELET VOLUME 10.9 fl (7.4-10.4); MONO % 5.1 % (0-9); PLATELET COUNT 116 K/uL (130-400); RED BLOOD COUNT 3.93 M/uL (4.40-5.70); RED CELL DISTRIBUTION WIDTH 16.9 % (11.5-14.5); WHITE BLOOD COUNT W/O DIFF 6.1 K/uL (4.2-12.2)
[2017-06-18] MEDS: ALBUTEROL SULFATE (0.083%) 2.5 MG/3 ML NEB INH ONE (06:31)
[2017-06-18 06:37] LABS: CREATININE 3.4 mg/dL (0.7-1.2)
[2017-06-18 06:38] LABS: BILIRUBIN,TOTAL 0.8 mg/dL (0.2-1.0); TOTAL PROTEIN 6.8 g/dL (6.6-8.7)
[2017-06-18] MEDS: PIPERACILLIN SODIUM/TAZOBACTAM 4.5 GM in 0.9 % SODIUM CHLORIDE 100ML 100 ML IVPB ONE (06:40)
[2017-06-18] MEDS: 0.9 % SODIUM CHLORIDE 1000ML 250 ML IV SCH (06:40)
[2017-06-18 06:41] LABS: INFLUENZA A NEGATIVE (NEGATIVE); INFLUENZA B NEGATIVE (NEGATIVE)
[2017-06-18 06:43] LABS: ALB/GLOB RATIO 1.6 (1.1-1.8); ALBUMIN 4.2 g/dL (4.0-5.0)
[2017-06-18 06:59] LABS: URINE APPEARANCE CLEAR; URINE BILIRUBIN NEGATIVE (NEGATIVE); URINE BLOOD MODERATE (NEGATIVE); URINE COLOR YELLOW; URINE GLUCOSE (UA) NEGATIVE (NEGATIVE); URINE KETONE NEGATIVE (NEGATIVE); URINE LEUKOCYTE ESTERASE NEGATIVE (NEGATIVE); URINE NITRITE NEGATIVE (NEGATIVE); URINE UROBILINOGEN 0.2 E.U./dL (0.20 - 1.00)
[2017-06-18 07:02] LABS: URINE PROTEIN 300 mg/dL (NEGATIVE)
[2017-06-18] MEDS: 0.9 % SODIUM CHLORIDE 1000ML 500 ML IV SCH (07:05)
[2017-06-18 07:12] LABS: URINE EPITHELIAL CELLS 0 - 2 (FEW); URINE WBC 0 - 2 (0-2/hpf)
[2017-06-18 07:13] LABS: URINE AMORPHOUS SEDIMENT 2+; URINE BACTERIA NONE SEEN
[2017-06-18] MEDS ORDERED: ALBUTEROL SULFATE (0.083%) 2.5 MG/3 ML NEB INH ONE (08:44)
[2017-06-18] MEDS ORDERED: WATER IV SCH ×2 (08:45)
[2017-06-18] MEDS ORDERED: NOREPINEPHRINE BITARTRATE IV SCH ×2 (08:45)
[2017-06-18] MEDS ORDERED: DEXTROSE 5% IV SCH ×2 (08:45)
[2017-06-18] MEDS ORDERED: 0.9 % SODIUM CHLORIDE 1000ML 1,000 ML IV SCH (08:45)
[2017-06-18] MEDS: WATER IV SCH ×2 (08:49)
[2017-06-18] MEDS: NOREPINEPHRINE BITARTRATE IV SCH ×2 (08:49)
[2017-06-18] MEDS: DEXTROSE 5% IV SCH ×2 (08:49)
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
--- NOTE | 2017-06-19 10:50 | RADIOLOGY REPORT ---
EXAM: PORTABLE CHEST HISTORY: CENTRAL LINE PLACEMENT. TECHNIQUE: A single AP supine view of the chest was obtained. Comparison: Semi-upright portable chest performed a short time earlier this morning on 06/18/17 at 6:33 a.m. FINDINGS: Since the prior exam, a left subclavian venous catheter has been placed with the catheter appearing to extend well down into the right atrium and may pass down into the upper IVC. No pneumothorax evident. Otherwise, allowing for some rotation to the right and more recumbent positioning currently , little appreciable change. Persistent right perihilar and infrahilar opacity as before. IMPRESSION: LEFT SUBCLAVIAN CATHETER PLACED EXTENDING WELL INTO THE RIGHT ATRIUM AND POSSIBLY INTO THE UPPER IVC. NO PNEUMOTHORAX EVIDENT. JOB NUMBER: [id number] MTDD
== END 2017-06-18 08:55 | disposition short-term general hospital (02) ==
LOC: ER 05:59
DX: A41.9 Sepsis, unspecified organism (principal); J18.9 Pneumonia, unspecified organism; I95.9 Hypotension, unspecified; R11.2 Nausea with vomiting, unspecified; R06.02 Shortness of breath; E11.22 Type 2 diabetes mellitus with diabetic chronic kidney disease; N18.6 End stage renal disease; Z99.2 Dependence on renal dialysis; Z79.84 Long term (current) use of oral hypoglycemic drugs
CPT/HCPCS: 36416; 36556; 71045; 80053; 81001; 82948; 83605; 84484; 85027; 87400; 94640; 96361; 96374; 96375; 99291; J2543; J7030; J7060; J7613